=== PATIENT | female | born 1975 | race Caucasian/White ===

== ENCOUNTER 2017-07-28 10:52 | Emergency (ER) | payer BC ==
[~2017-07-28] VITALS: Ht 170.2 cm; Wt 85.9 kg
[2017-07-28] MEDS ORDERED: LORTAB 5-325 M1 EACH PO (16:12)
[2017-07-28] MEDS ORDERED: FLEXERIL10 MG PO (16:12)
[2017-07-28 17:07] VITALS: BP 120/74
== END 2017-07-28 17:08 | disposition home or self-care (01) ==
LOC: EME 10:52
PROC: 2W3RX1Z Immobilization of Left Lower Leg using Splint (ICD-10-PCS; principal; 2017-07-28)
DX: S86.112A Strain of other muscle(s) and tendon(s) of posterior muscle group at lower leg level, left leg, initial encounter (principal); X50.0XXA Overexertion from strenuous movement or load, initial encounter; I47.1 Supraventricular tachycardia; F17.200 Nicotine dependence, unspecified, uncomplicated
CPT/HCPCS: 73610; 73721; 99281; 99285; J3010